=== PATIENT | female | born 1980 | race American Indian/Alaskan Native ===

== ENCOUNTER 2021-05-07 07:49 | Outpatient (CLI) | payer OTHER | END 2021-05-07 08:00 | disposition home or self-care (01) | LOC: MRI 07:49 | PROVIDERS: ATTEND Obstetrics & Gynecology Maternal & Fetal Medicine | DX: N80.0 Endometriosis of uterus (principal); N80.8 Other endometriosis | CPT/HCPCS: 72195 ==